=== PATIENT | male | born 1990 | race African-American/Black ===

== ENCOUNTER 2016-07-08 23:11 | Emergency (ER) | payer SELFPAY ==
--- NOTE | 2016-07-14 22:47 | ER ---
ADMIT: 07/08/2016 RM/LOC: ER [facility] MR#: [id number] [address] [address] [address] [place] [address] Emergency Room Report SEX: M AGE: 26 : 1990 DATE: 07/08/2016 The patient is a 26-year-old male in police custody for DUI. No health concerns. Released in police custody. Fredy Vega MD/ scooby JOB #: [id number] CC: Fredy Vega MD, Attending Physician Dani Rodríguez MD, Family Physician Lloyd Arnold MD
== END 2016-07-08 23:15 | disposition home or self-care (01) ==
LOC: ER 23:11
DX: Z02.89 Encounter for other administrative examinations (principal)

== ENCOUNTER 2016-09-12 01:23 | Emergency (ER) | payer SELFPAY ==
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
== END 2016-09-12 01:30 ==
LOC: ER 01:23
DX: F10.10 Alcohol abuse, uncomplicated (principal); F17.210 Nicotine dependence, cigarettes, uncomplicated

== ENCOUNTER 2016-09-26 21:04 | Emergency (ER) | payer SELFPAY ==
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
== END 2016-09-27 | disposition home or self-care (01) ==
LOC: ER 21:04
DX: S30.1XXA Contusion of abdominal wall, initial encounter (principal); S60.212A Contusion of left wrist, initial encounter; F17.210 Nicotine dependence, cigarettes, uncomplicated; V19.9XXA Pedal cyclist (driver) (passenger) injured in unspecified traffic accident, initial encounter; Y92.410 Unspecified street and highway as the place of occurrence of the external cause

== ENCOUNTER 2016-09-30 03:02 | Emergency (ER) | payer SELFPAY ==
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
== END 2016-09-30 03:10 | disposition home or self-care (01) ==
LOC: ER 03:02
DX: F10.129 Alcohol abuse with intoxication, unspecified (principal); Y90.7 Blood alcohol level of 200-239 mg/100 ml; Z88.6 Allergy status to analgesic agent

== ENCOUNTER 2016-10-23 18:31 | Emergency (ER) | payer SELFPAY ==
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
== END 2016-10-23 20:25 | disposition short-term general hospital (02) ==
LOC: ER 18:31
DX: S02.81XA Fracture of other specified skull and facial bones, right side, initial encounter for closed fracture (principal); S02.0XXA Fracture of vault of skull, initial encounter for closed fracture; S06.5X9A Traumatic subdural hemorrhage with loss of consciousness of unspecified duration, initial encounter; S01.81XA Laceration without foreign body of other part of head, initial encounter; S05.11XA Contusion of eyeball and orbital tissues, right eye, initial encounter; Y08.09XA Assault by strike by other specified type of sport equipment, initial encounter